=== PATIENT | male | born 1960 | race Caucasian/White ===

== ENCOUNTER 2025-08-26 06:26 | Inpatient (IN) | payer MEDICARE, OTHER ==
[~2025-08-26] VITALS: Ht 170.2 cm; Wt 90.7 kg
[2025-08-26] MEDS ORDERED: VANCOMYCIN 1 GM VIAL ONE (07:00)
[2025-08-26] MEDS ORDERED: dexaMETHasone SOD PHOSPHATE 2 ML ONE (07:00)
[2025-08-26] MEDS ORDERED: LIDOCAINE 2%-EPI 1:100,000 30 ML VIAL ONE (07:00)
[2025-08-26] MEDS ORDERED: ANESTHESIA TRAY IN PYXIS 1 EA TRAY MC ONE (07:00)
[2025-08-26] MEDS ORDERED: SUGAMMADEX SODIUM 200 MG/2 ML VIAL IV ONE (07:14)
[2025-08-26] MEDS ORDERED: LIDOCAINE 2% JEL UROJET 10 ML MM ONE (07:14)
[2025-08-26] MEDS ORDERED: OXYMETAZOLINE HCL NASAL SPRAY 30 ML BOTTLE NS ONE (07:14)
[2025-08-26] MEDS ORDERED: FENTANYL PF 100MCG/2ML AMPUL ONE (07:14)
[2025-08-26] MEDS ORDERED: MIDAZOLAM HCL 2 MG/2ML VIAL ONE (07:14)
[2025-08-26] MEDS ORDERED: ROCURONIUM BROMIDE 50 MG/5 ML ONE (07:15)
[2025-08-26] MEDS ORDERED: HYDROMORPHONE 1 MG/1 ML DISP.SYRIN ONE (11:22)
[2025-08-26] MEDS: HYDROMORPHONE 1 MG/1 ML DISP.SYRIN IV PRN ×2 (11:33→13:41)
[2025-08-26 12:15] VITALS: BP 121/63; TEMP 97.8
[2025-08-26 12:30] VITALS: BP 119/56; TEMP 97.5
[2025-08-26] MEDS ORDERED: ONDANSETRON HCL/PF 4 MG/2 ML VIAL IVP PRN ×2 (12:30→16:30)
[2025-08-26] MEDS ORDERED: ACETAMINOPHEN 325 MG TABLET PO PRN ×2 (12:30→16:30)
[2025-08-26 12:45] VITALS: BP 118/65; TEMP 98.2
[2025-08-26 13:00] VITALS: BP 116/68; TEMP 98.1
[2025-08-26] MEDS ORDERED: ICOS1CAP PO (13:19)
[2025-08-26] MEDS ORDERED: INSU300I3 SQ (13:19)
[2025-08-26] MEDS ORDERED: ASPI-1420 PO (13:19)
[2025-08-26] MEDS ORDERED: METH5TAB6 PO (13:19)
[2025-08-26] MEDS ORDERED: CHOL100062 PO (13:19)
[2025-08-26] MEDS: IV NS 0.9% 1,000 ML IV PRN (15:37)
[2025-08-26 16:00] VITALS: BP 139/79; TEMP 98.1; O2SAT 98
[2025-08-26] MEDS ORDERED: Z GUARD REMEDY 4 OZ OINT TP PRN (16:30)
[2025-08-26] MEDS ORDERED: MAG HYDROX/AL HYDROX/SIMETH 30 ML UDC PO PRN (16:30)
[2025-08-26] MEDS ORDERED: MAGNESIUM HYDROXIDE 30 ML UDC PO PRN (16:30)
[2025-08-26] MEDS: VANCOMYCIN 1 GM in IV D5W 250ml IV SCH (20:28)
[2025-08-26 21:21] VITALS: BP 122/58; TEMP 98.1; O2SAT 97
[2025-08-26] MEDS ORDERED: DEXTROSE 50%-WATER 50 ML DISP.SYRIN IV PRN (22:00)
[2025-08-26] MEDS: BLOOD SUGAR DIAGNOSTIC 1 EACH STRIP IN SCH (22:26)
[2025-08-26] MEDS: INSULIN REGULAR, HUMAN 100 UNIT/ML 3 ML VIAL SQ PRN (22:27)
[2025-08-27 07:00] VITALS: BP 118/62; TEMP 98.1; O2SAT 99
[2025-08-27 07:57] LABS: PLATELET COUNT (AUTO) 202 K/uL (150-450); RED BLOOD CELL COUNT(AUTO) 4.39 MIL/uL (4.5-6.0); RED CELL DISTRIBUTION WIDTH 14.6 % (11.5-15.0); WHITE BLOOD COUNT (AUTO) 9.1 K/uL (4.3-11.0)
[2025-08-27 08:08] LABS: CALCIUM, SERUM 8.5 mg/dL (8.5-10.1); CREATININE 1.1 mg/dL (0.6-1.3); PHOSPHORUS 3.2 mg/dL (2.5-4.9); SODIUM SERUM 136.0 mmol/L (136-145); UREA NITROGEN, BLOOD 17.0 mg/dL (7-18)
== END 2025-08-27 12:30 | disposition home or self-care (01) | DRG 142 ==
LOC: DS 06:26 → MED 12:05
PROVIDERS: ADMIT Internal Medicine; ATTEND Internal Medicine
PROC: 0NSR04Z Reposition Maxilla with Internal Fixation Device, Open Approach (ICD-10-PCS; 2025-08-26)
PROC: 0NST04Z Reposition Right Mandible with Internal Fixation Device, Open Approach (ICD-10-PCS; 2025-08-26)
PROC: 0NUV07Z Supplement Left Mandible with Autologous Tissue Substitute, Open Approach (ICD-10-PCS; 2025-08-26)
PROC: 0NUR07Z Supplement Maxilla with Autologous Tissue Substitute, Open Approach (ICD-10-PCS; 2025-08-26)
PROC: 0NUT07Z Supplement Right Mandible with Autologous Tissue Substitute, Open Approach (ICD-10-PCS; 2025-08-26)
PROC: 0N5R0ZZ Destruction of Maxilla, Open Approach (ICD-10-PCS; 2025-08-26)
PROC: 09UR07Z Supplement Left Maxillary Sinus with Autologous Tissue Substitute, Open Approach (ICD-10-PCS; 2025-08-26)
PROC: 09UQ07Z Supplement Right Maxillary Sinus with Autologous Tissue Substitute, Open Approach (ICD-10-PCS; 2025-08-26)
PROC: 0N5V0ZZ Destruction of Left Mandible, Open Approach (ICD-10-PCS; 2025-08-26)
PROC: 0N5T0ZZ Destruction of Right Mandible, Open Approach (ICD-10-PCS; 2025-08-26)
PROC: 0NSV04Z Reposition Left Mandible with Internal Fixation Device, Open Approach (ICD-10-PCS; principal; 2025-08-26 07:30)
DX: S02.40DB Maxillary fracture, left side, initial encounter for open fracture (principal); D16.5 Benign neoplasm of lower jaw bone; E11.9 Type 2 diabetes mellitus without complications; E78.5 Hyperlipidemia, unspecified; J32.0 Chronic maxillary sinusitis; S02.40CB Maxillary fracture, right side, initial encounter for open fracture; S02.69XB Fracture of mandible of other specified site, initial encounter for open fracture; I25.10 Atherosclerotic heart disease of native coronary artery without angina pectoris; M27.2 Inflammatory conditions of jaws; X58.XXXA Exposure to other specified factors, initial encounter; Y93.9 Activity, unspecified; Y92.009 Unspecified place in unspecified non-institutional (private) residence as the place of occurrence of the external cause
CPT/HCPCS: 36415; 71045-TC; 80048-TC; 82962-TC; 83735-TC; 84100-TC; 85025-TC; 87081-TC; 88305-TC; 88311-TC; A4217; A4223; A4338; C1713; G0378; J0360; J1100; J1171; J1815; J1885; J2250; J2405; J2704; J3010; J3373; J3490; J7030; J7050; J7060